=== PATIENT | male | born 1995 | race Caucasian/White ===

== ENCOUNTER 2019-01-09 21:05 | Emergency (ER) | payer MEDICAID ==
--- NOTE | 2019-01-09 22:31 | EDPHYS ---
Physician Documentation [facility] Name: Medadro Leija Age: 23 yrs Sex: Male : 1995 Arrival Date: 01/09/2019 Time: 21:11 Bed 25 Private MD: ED Physician Tim Ashford HPI: 01/09 21:43 This 23 yrs old Male presents to ER via Ambulatory with complaints of Abscess snw tooth. 21:43 The patient presents with pain. The problem is located in the upper left second molar snw (#15). Onset: The symptoms/episode began/occurred suddenly, 2 day(s) ago, and became worse and became persistent. Duration: The symptoms are continuous. Associated signs and symptoms: Pertinent positives: chills, pain, fever. Severity of symptoms: At their worst the symptoms were moderate. The patient has not experienced similar symptoms in the past. The patient has not recently seen a physician. 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 - Social history:: Smoking status: Patient/guardian denies using tobacco. - Ebola Screening: : No symptoms or risks identified at this time. ROS: 21:42 Eyes: Negative for injury, pain, redness, and discharge, Neck: Negative for injury, snw pain, and swelling, Cardiovascular: Negative for chest pain, palpitations, and edema, Respiratory: Negative for shortness of breath, cough, wheezing, and pleuritic chest pain, Abdomen/GI: Negative for abdominal pain, nausea, vomiting, diarrhea, and constipation, Back: Negative for injury and pain, : Negative for injury, bleeding, discharge, and swelling, MS/Extremity: Negative for injury and deformity, Skin: Negative for injury, rash, and discoloration, Neuro: Negative for headache, weakness, numbness, tingling, and seizure. 21:42 Constitutional: Positive for body aches, fever, malaise. 21:42 ENT: Positive for dental pain. Exam: 21:41 Head/Face: Normocephalic, atraumatic. Eyes: Pupils equal round and reactive to light, snw extra-ocular motions intact. Lids and lashes normal. Conjunctiva and sclera are non-icteric and not injected. Cornea within normal limits. Periorbital areas with no swelling, redness, or edema. Neck: Trachea midline, no thyromegaly or masses palpated, and no cervical lymphadenopathy. Supple, full range of motion without nuchal rigidity, or vertebral point tenderness. No Meningismus. Chest/axilla: Normal chest wall appearance and motion. Nontender with no deformity. No lesions are appreciated. 21:41 Respiratory: Lungs have equal breath sounds bilaterally, clear to auscultation and percussion. No rales, rhonchi or wheezes noted. No increased work of breathing, no retractions or nasal flaring. Back: No spinal tenderness. No costovertebral tenderness. Full range of motion. Skin: Warm, dry with normal turgor. Normal color with no rashes, no lesions, and no evidence of cellulitis. MS/ Extremity: Pulses equal, no cyanosis. Neurovascular intact. Full, normal range of motion. Neuro: Awake and alert, GCS 15, oriented to person, place, time, and situation. Cranial nerves II-XII grossly intact. Motor strength 5/5 in all extremities. Sensory grossly intact. Cerebellar exam normal. Normal gait. 21:41 Constitutional: The patient appears alert, anxious. 21:41 ENT: TM's: are normal, Nose: is normal, Mouth: is normal, Posterior pharynx: is normal, Dental exam: pain, that is moderate, specifically in the upper left second molar (#15), Voice: is normal. 21:41 Cardiovascular: Rate: tachycardic, Heart sounds: normal. Vital Signs: 21:19 BP 134 / 95; Pulse 93; Resp 18; Temp 99(O); Pulse Ox 98% on R/A; Weight 99.79 kg; tl2 Height 5 ft. 10 in. (177.80 cm); 21:19 Body Mass Index 31.57 (99.79 kg, 177.80 cm) tl2 MDM: 21:23 Patient medically screened. snw 01/10 01:47 Data reviewed: vital signs, nurses notes. Data interpreted: Pulse oximetry: on room air snw is 98 %. Interpretation: normal. Counseling: I had a detailed discussion with the patient and/or guardian regarding: the historical points, exam findings, and any diagnostic results supporting the discharge/admit diagnosis, lab results, the need for outpatient follow up, to return to the emergency department if symptoms worsen or persist or if there are any questions or concerns that arise at home. Special discussion: I have referred the patient to see his PCP for further evaluation of high blood pressure. Based on the history and exam findings, there is no indication for further emergent testing or inpatient evaluation. I discussed with the patient/guardian the need to see a dentist for further evaluation of the symptoms. I discussed with the patient/guardian the need to see the primary care provider for further evaluation of the symptoms. 01/09 21:34 Order name: Flu snw 01/09 21:34 Order name: Strep snw 01/09 22:07 Order name: Group A Streptococcus Rapid Sc; Complete Time: 22:07 EDMS 01/09 22:25 Order name: Influenza Screen (A ; Complete Time: 22:25 EDMS Administered Medications: 01/09 22:45 Drug: Amoxicillin 500 mg Route: PO; rv 22:45 Follow up: Response: Medication administered at discharge. rv 22:45 Drug: Tylenol #3 (300 mg-30 mg) 2 tabs Route: PO; rv 22:45 Follow up: Response: Medication administered at discharge. rv Disposition: 01/10 01:20 Co-signature as Attending Physician, Tim Ashford MD. rn Disposition: 01/09/19 22:31 Discharged to Home. Impression: Open hindu margins of tooth, Fever presenting with conditions classified elsewhere. - Condition is Stable. - Discharge Instructions: Dental Abscess, Dental Pain, Fever, Adult, Preventive Dental Care, Adult. - Prescriptions for chlorhexidine gluconate 0.12 % Mucous Membrane mouthwash - place 15 milliliter by MUCOUS MEMBRANE route 2 times per day after brushing teeth, swish in mouth for 30 seconds then spit out; 480 milliliter. Amoxicillin 500 mg Oral Capsule - take 1 capsule by ORAL route every 8 hours for 10 days; 30 tablet. Tylenol- Codeine #3 300-30 mg Oral Tablet - take 2 tablets by ORAL route every 6 hours As needed; 16 tablet. - Medication Reconciliation Form, Thank You Letter, Antibiotic Education, Prescription Opioid Use form. - Follow up: Private Physician; When: 2 - 3 days; Reason: Recheck today's complaints, Continuance of care, Re-evaluation by your physician. Follow up: Emergency Department; When: As needed; Reason: Worsening of condition. Signatures: Dispatcher [employer] EDLindy Welch, JUMP ROLL OPERATOR-C JUMP ROLL OPERATOR-Csnw Tim Ashford MD MD rn Myra Mcclain RN RN tl2 Moises Gaytan RN RN rv Corrections: (The following items were deleted from the chart) 01/09 22:46 22:31 01/09/2019 22:31 Discharged to Home. Impression: Open hindu margins of rv tooth; Fever presenting with conditions classified elsewhere. Condition is Stable. Forms are Medication Reconciliation Form, Thank You Letter, Antibiotic Education, Prescription Opioid Use. Follow up: Private Physician; When: 2 - 3 days; Reason: Recheck today's complaints, Continuance of care, Re-evaluation by your physician. Follow up: Emergency Department; When: As needed; Reason: Worsening of condition. snw
--- NOTE | 2019-01-09 22:31 | ER ---
Nurse's Notes [facility] Name: Medardo Leija Age: 23 yrs Sex: Male : 1995 Arrival Date: 01/09/2019 Time: 21:11 Bed 25 Private MD: Diagnosis: Open bahai margins of tooth;Fever presenting with conditions classified elsewhere Presentation: 01/09 21:16 Presenting complaint: Patient states: upper left tooth abscess noticed 2 days ago. tl2 Fever and body aches started today. Mother gave natural antibiotics 2 hours ago. Transition of care: patient was not received from another setting of care. Onset of symptoms was January 09, 2019. Risk Assessment: Do you want to hurt yourself or someone else? Patient reports no desire to harm self or others. Initial Sepsis Screen: Does the patient meet any 2 criteria? No. Patient's initial sepsis screen is negative. Does the patient have a suspected source of infection? No. Patient's initial sepsis screen is negative. Care prior to arrival: None. 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 - Social history:: Smoking status: Patient/guardian denies using tobacco. - Ebola Screening: : No symptoms or risks identified at this time. Screenin:17 Abuse screen: Denies threats or abuse. Nutritional screening: No deficits noted. la1 Tuberculosis screening: No symptoms or risk factors identified. Fall Risk None identified. Assessment: 22:17 General: Appears in no apparent distress. Behavior is calm, cooperative. Pain: la1 Complains of pain in upper left second molar (#15). Neuro: Level of Consciousness is awake, alert, obeys commands, Oriented to person, place, time, situation. Cardiovascular: Capillary refill < 3 seconds Patient's skin is warm and dry. Respiratory: Airway is patent Respiratory effort is even, unlabored, Respiratory pattern is regular, symmetrical. GI: No signs and/or symptoms were reported involving the gastrointestinal system. : No signs and/or symptoms were reported regarding the genitourinary system. Vital Signs: 21:19 BP 134 / 95; Pulse 93; Resp 18; Temp 99(O); Pulse Ox 98% on R/A; Weight 99.79 kg; tl2 Height 5 ft. 10 in. (177.80 cm); 21:19 Body Mass Index 31.57 (99.79 kg, 177.80 cm) tl2 ED Course: 21:11 Patient arrived in ED. mr 21:14 Bennett Barreto, RN is Primary Nurse. la1 21:17 Triage completed. tl2 21:19 Arm band placed on right wrist. tl2 21:23 [facility]C [facility]. snw 21:23 Tim Ashford MD is Attending Physician. snw 22:17 Call light in reach. Side rails up X 1. la1 22:17 No provider procedures requiring assistance completed. Patient did not have IV access la1 during this emergency room visit. Administered Medications: 22:45 Drug: Amoxicillin 500 mg Route: PO; rv 22:45 Follow up: Response: Medication administered at discharge. rv 22:45 Drug: Tylenol #3 (300 mg-30 mg) 2 tabs Route: PO; rv 22:45 Follow up: Response: Medication administered at discharge. rv Outcome: 22:31 Discharge ordered by . snw 22:46 Discharged to home ambulatory. rv 22:46 Condition: good 22:46 Discharge instructions given to family, Instructed on discharge instructions, follow up and referral plans. medication usage, Demonstrated understanding of instructions, follow-up care, medications, Prescriptions given X 3. 22:46 Patient left the ED. rv Signatures: Lindy Rios FNP-C FNP-Edmar Denisse Chavez mr Bennett Barreto RN RN la1 Myra Mcclain RN RN tl2 Moises Gaytan RN RN rv
[2019-01-09] MEDS ORDERED: AMOXICILLIN TRIHYDR 250 MG CAP ONE (22:45)
[2019-01-09] MEDS ORDERED: CODEINE 30MG/APAP 300MG TAB ONE (22:51)
== END 2019-01-09 22:46 | disposition home or self-care (01) ==
LOC: ER 21:05
DX: K08 Other disorders of teeth and supporting structures (principal); R50.9 Fever, unspecified
CPT/HCPCS: 87070; 87081; 87804; 99283